=== PATIENT | female | born 1940 | race Caucasian/White ===

== ENCOUNTER 2025-02-15 11:14 | Outpatient (REF) | payer MEDICARE, SELFPAY ==
[2025-02-15 13:13] LABS: MANUAL DIFF FLAG NO
[2025-02-15 13:32] LABS: Hematocrit 44.3 % (37.0-47.0); Hemoglobin 14.1 g/dl (12.0-16.0); Imm Gran Abs Auto 0.01 X10*3/uL (0.00-0.03); Imm Gran Pct Auto 0.1 % (0.0-0.4); Lymphocytes Absolute Auto 1.8 X10*3/uL (1.2-4.9); Mean Corpuscular HGB Conc 31.8 g/dl (31.0-35.0); Mean Corpuscular Hemoglobin 30.6 pg (27.0-33.0); Mean Corpuscular Volume 96.1 fL (80.0-98.0); NRBC Abs Auto 0.000 X10*3/uL (0.0-0.012); NRBC Pct Auto 0.0 /100WBC (0.0-0.2); Platelet Count 345 X10*3/uL (160-400); Red Blood Count 4.61 X10*6/uL (4.20-5.50); White Blood Count 7.1 X10*3/uL (4.8-10.8)
[2025-02-15 13:58] LABS: Alanine Aminotransferase 13 U/L (0-31); Albumin Level 4.1 g/dL (3.5-5.0); Alkaline Phosphatase 95 U/L (39-117); Anion Gap 10 (12-20); Aspartate Amino Transferase 26 U/L (5-31); Blood Urea Nitrogen 19 mg/dL (9-16); Calcium 9.1 mg/dL (8.4-10.2); Carbon Dioxide 30 mmol/L (22-29); Chloride 103 mmol/L (96-108); Cholesterol 206 mg/dL (<200); Estimated Glomerular Filt Rate > 60; HDL Cholesterol 51 mg/dL (>40); Potassium 3.8 mmol/L (3.3-5.1); Sodium 139 mmol/L (135-145); Total Protein 7.9 g/dL (6.5-8.0); Triglycerides 107 mg/dL (<150)
--- OUTSIDE RECORDS SUMMARY | 2025-02-15 14:24 | XMS_ITS | Clinical Summary ---
Author Organization [facility], [facility], and [facility] Address [address] [place] [address] Care Team Providers Care Jewel Bearing Polisher Name Role Phone Caprice Coleman MD Primary Care Provider [phone] Jose Maria Anguiano MD Unavailable Unavailable Yarelis Zarate, [facility] Unavailable Shabana Coulter MD Unavailable Unavailable Diego Santa MD Unavailable [phone] Allergies Active Allergy Reactions Criticality Noted Date Comments 5ht3 Receptor Antagonists 07/24/2020 Codeine 04/25/2019 Medications polyvinyl alcohol 1.4 % Solution ophthalmic solutionIndicati ons:Burning Sensation of Eyes Administer 1 drop to both eyes 4 Times a Day As Needed. Indications: Burning in Eyes 1 Bottle 10 07/03/19 21 Active brimonidine 0.2 % SolutionIndicati ons:Increased Intraocular Pressure,Ocular Hypertension,Ope n-Angle Glaucoma Administer 1 drop to both eyes 2 Times a Day. Indications: Increased Pressure Within the Eye, Persistently Increased Pressure in the Eye, Wide-Angle Glaucoma 1 Bottle 5 07/03/19 21 Active ciclopirox (CICLODAN) 8 % SolutionIndicati ons:Fungal Infection Apply topically Nightly. 6.6 mL 3 06/16/19 23 Active Multiple Vitamin (MULTIVITAMIN ADULT) TabletIndication s:Vitamin and/or Mineral Deficiency Take 1 tablet by mouth Daily. 90 tablet 2 11/10/19 24 Active Diclofenac Sodium 1 % GelIndications:I nflammation Apply topically 2 Times a Day As Needed. 150 g 3 11/10/19 24 Active bisacodyl 10 MG suppositoryIndic ations:Constipat ion Insert 1 suppository (10 mg) into the rectum Daily. 12 suppository 12/02/19 24 Active polyethylene glycol 17 gram 17 g PacketIndication s:Constipation 1 Packet Daily As Needed Use as directed. 30 Each 1 12/02/19 24 Active psyllium 58.6 % PacketIndication s:Constipation Take 1 Packet by mouth Daily. 30 Each 5 12/22/19 24 Active losartan 25 MG TabletIndication s:Hypertension Take 1 tablet (25 mg) by mouth Daily DOSE CHANGE. 90 tablet 3 03/09/20 24 025 Active latanoprost ophthalmic solution (XALATAN) 0.005 % Solution ophthalmic solutionIndicati ons:Increased Intraocular Pressure Apply 1 drop to eye Nightly. 7.5 mL 10 03/09/20 24 Active dorzolamide 2 % Solution ophthalmic solutionIndicati ons:Glaucoma Administer 1 drop to both eyes 2 Times a Day. 10 mL 10 03/09/20 24 Active timolol ophthalmic solution 0.5 % Solution ophthalmic solutionIndicati ons:Increased Intraocular Pressure Administer 1 drop to both eyes 2 Times a Day. 10 mL 10 03/09/20 24 Active aspirin 81 MG Tablet DRIndications:Ca rdiovascular Risk Reduction Take 1 tablet (81 mg) by mouth Daily. 90 tablet 3 05/27/19 25 026 Active pravastatin 40 MG TabletIndication s:Hyperlipidemia Take 1 tablet (40 mg) by mouth Nightly. 90 tablet 3 05/27/19 25 026 Active levothyroxine 88 MCG TabletIndication s:Hypothyroidism Take 1 tablet (88 mcg) by mouth Daily DOSE CHANGE - please increase from 75mcg daily to 88mcg daily. 90 tablet 3 06/22/19 25 Active citalopram 40 MG TabletIndication s:Depression Take 1 tablet (40 mg) by mouth Daily. 90 tablet 3 06/22/19 25 Active meclizine 25 MG TabletIndication s:Vertigo Take 1 tablet (25 mg) by mouth Daily As Needed for vertigo. 30 tablet 1 06/22/19 25 Active metoprolol succinate 25 MG Tablet ER 24 HourIndications: Hypertension Take 1 tablet (25 mg) by mouth Daily. 90 tablet 3 06/22/19 25 Active Omeprazole 40 MG Capsule DRIndications:Ga stric Hyperacidity Take 1 capsule (40 mg) by mouth Daily 30 mins Before Breakfast. 90 capsule 3 08/13/19 25 026 Active simethicone 80 MG Tablet ChewableIndicati ons:Flatulence Take 1 tablet (80 mg) by mouth Every 6 Hours As Needed for flatulence. 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 Hypothyroidism 04/25/2019 Other depressive disorder 04/25/2019 Otitis externa 04/25/2019 Reflux esophagitis 04/25/2019 Routine history and physical examination of adul t 04/25/2019 Constipation 09/10/2018 Autoimmune hepatitis 02/15/2018 Vertigo 05/19/2016 Sensorineural hearing loss, bilateral 05/19/2016 Dizziness 02/15/2016 Subjective tinnitus 02/15/2016 Nonulcer dyspepsia 05/10/2009 Absolute anemia 05/10/2009 Migraine 05/10/2009 Other and unspecified hyperlipidemia 05/10/2009 Immunizations Immunization Administration Dates Next Due Influenza Vaccine, Quadrivalent, Adjuvanted 01/18,03/19/2022,12/22/2020 Influenza high dose seasonal , preservative free, trivalent 01/24/2019,02/16/2017,03/21/2016 Influenza quadrivalent injec table, preservative free 12/29/2019 Influenza seasonal adjuvante d, preservative free, trivalent 02/04/2024,02/11/2018 Influenza seasonal injectable, trivalent 014,03/25/2013 Pfizer Age 12Y+ (Purple Top) SARS-CoV-2 Vaccination 02/21/2021,06/01/2020,05/11/2020 Pfizer Age 12Y+ Helio-Sucrose 30 mcg/0.3 mL SARS-CoV-2 Vaccination 09/19/2021 Pneumococcal polysaccharide, 23 valent (Pneumovax) 09/12/2020 RSV VACCINE (ABRYSVO), 60 Y+ /Preg 32-36W, BIVALENT, 0.5 ML, IM 05/26/2023 TDAP, adsorbed 05/29/2021 Zoster recombinant (Shingrix) 02/17/2022, 022 Social History Tobacco Use Types Packs/Day Years Used Date Smoking Tobacco: Never Smokeless Tobacco: Never Tobacco Cessation:Counseling Given: Not Answered Alcohol Use Standard Drinks/Week Comments Never 0 (1 standard drink = 0.6 oz pur e alcohol) Hunger Vital Sign Answer Date Recorded Within the past 12 months, y ou worried that your food would run out before you got the money to buy more. Never true 06/13/19 23 Within the past 12 months, t he food you bought just didn't last and you didn't have money to get more. Never true 06/13/2022 PRAPARE - Transportation Answer Date Re corded In the past 12 months, has l ack of transportation kept you from medical appointments or from getting medications? No 05/22 In the past 12 months, has l ack of transportation kept you from meetings, work, or from getting things needed for daily living? No 06/13/2022 Housing Stability Vital Sign Answer Joseph e Recorded In the last 12 months, was t here a time when you were not able to pay the mortgage or rent on time? No 06/13/2022 In the last 12 months, how many places have you lived? 1 06/13/2022 In the last 12 months, was t here a time when you did not have a steady place to sleep or slept in a long term (including now)? No 06/13/2022 Comments No Sex and Gender Information Value Date Recorded Sex Assigned at Female 03/19/2022 12:23 PM EST Legal Sex Female 1:13 PM EST Gender Identity Female 03/19/2022 12:23 PM EST Sexual Orientation Straight 03/19/2022 12 :23 PM EST Last Filed Vital Signs Vital Sign Reading Time Taken Comments Blood Pressure 134/76 08/23/2024 2:39 PM EDT Pulse 68 08/23/2024 2:39 PM EDT Temperature 36.5 C (97.7 F) 08/23/2024 2:39 PM EDT Respiratory Rate 17 08/23/2024 2:39 PM EDT Oxygen Saturation 95% 08/23/2024 2:39 PM EDT Inhaled Oxygen Concentration - - Weight 67.2 kg (148 lb 3.2 oz) 08/23/2024 2:39 P M EDT Height 157.5 cm (5' 2 ) 08/23/2024 2:39 PM EDT Body Mass Index 27.11 08/23/2024 2:39 PM EDT Plan of Treatment Upcoming Encounters Date Type Department Care Team (Late st Contact Info) Description 04/03/2025 1:00 PM EST Office Visit [facility] [address], [address] [place] [phone] Romina Byers MD [address] [address] Health Maintenance Due Date Last Done Comments Cologuard 2017 FOBT/FIT 2017 Flex-Sigmoidoscopy or CT Colonography 2017 Pneumococcal Vaccine: 50+ Years (2 of 2 - PCV) 09/12/2021 09/12/2020 Screening Mammography for Breast Cancer 07/01/2022 07/01/2021, 07/01/2021, 07/01/2021, Additional history exists BONE DENSITY SCREENING 02/14/2024 , 02/13/2022, 02/13/2022 COVID-19 Vaccine ( season) 2024 09/19/2021, 02/21/2021, 06/01/2020, Additional history exists IMM: Influenza (#1) 2024 02/04/2024, 01/27/2023, 03/19/2022, Additional history exists LIPID SCREENING 07/12/2029 07/12/2024, 02/0 09/2023, 12/18/2021, Additional history exists Colonoscopy 07/24/2030 07/24/2020 Colorectal Cancer Screening 07/24/2030 IMM: DTap/ Tdap/ Td (2 - Td or Tdap) 05/29/2031 05/29/2021 IMM: Zoster Vaccine (Shingles) Completed 02/17/2022, 11/08/2021, 11/13/2020 IMM: RSV Completed 05/26/2023 IMM: Meningococcal B Aged Out No long er eligible based on patient's age to complete this topic Pap Smear Discontinued Procedures Procedure Name Priority Date/Time Associated Diagnosis Comments LIPID PROFILE Routine 07/12/2024 2:26 PM EDT Cerebrovascular accident (CVA), unspecified mechanism BONE DENSITOMETRY SCAN ONLY Routine 02/13/2022 MAMMOGRAM SCREENING DIGITAL WITH TOMOSYNTHESIS - BILATERAL Routine 07/01/2021 2:20 PM EDT Encounter for screening mammogram for malignant neoplasm of breast COLONOSCOPY 07/24/2020 7:40 AM EDT from Last 3 Months or Most Recently Relevant to Health Maintenance Results * (ABNORMAL) LIPID PROFILE (07/12/2024 2:26 PM EDT) Cholesterol Total 212(H) <=199 mg/dL 07/12/2024 6:12 PM EDT [facility] Comment:The significance of total cholesterol depends on the value of individual components including HDL, LDL, non-HDL, and triglycerides. Triglyceride 109 <=149 mg/dL 07/12/2024 6:12 PM EDT [facility] Comment: < 150 mg/dL Normal fasting < 175 mg/dL Normal non-fasting >= 500 mg/dL Severely elevated HDL Cholesterol 58 >=50 mg/dL 07/12/2024 6:12 PM EDT [facility] Comment: < 40 mg/dL Low >= 60 mg/dL Desirable LDL Cholesterol 132 mg/dL 6:13 PM EDT [facility] Comment: <= 99 mg/dL (Primary prevention) <= 69 mg/dL (Secondary prevention) < 70 mg/dL, Desired threshold for known coronary disease, stroke, and peripheral artery disease. 70-159 mg/dL, Cardiovascular risk assessment is recommended. Recommend lipid lowering therapy with history of diabetes. 160-189 mg/dL, Moderately elevated. Recommend lipid lowering therapy if cardiovascular risk factor present. >= 190 mg/dL, Severely elevated; consider possibility of familial hypercholesterolemia. Lipid lowering therapy strongly encouraged Non-HDL Cholesterol 154 mg/dL 07/12 6:13 PM EDT [facility] Comment: Reference ranges: <= 129 mg/dL (Primary prevention) <= 99 mg/dL (Secondary prevention) Chol HDL Ratio 3.7 0.0 - 4.9 07/12/2024 6:13 PM EDT [facility] Blood 07/12/2024 2:26 PM EDT 07/12/2024 4:40 PM EDT Narrative Resulting Agency Comment LIPID Caprice Coleman MD LAB-CHEMISTRY Final Result [facility] [address] [address] [facility] [address] [address] * BONE DENSITOMETRY SCAN ONLY (02/13/2022) Anatomical Region Laterality Modality Entire Body N/A Digital Radiogra phy us Historical Scan IMG DXA PROCEDURES Final Result * Mammogram Screening Digital with Tomosynthesis - Bilateral (07/01/2021 2:20 PM EDT) Anatomical Region Laterality Modality Breast Bilateral Mammography 05/07/2021 Impressions 07/06/2021 1:44 PM EDT There is no mammographic evidence of malignancy. RECOMMENDATION: Screening Mammogram in 1 Year Side: Both BI-RADS mammogram: 2: Benign Electronically Signed By: Princess Tabor on July 06, 2021 01:40 PM Narrative 07/06/2021 1:44 PM EDT EXAMINATION: BILATERAL SCREENING DIGITAL MAMMOGRAM WITH TOMOSYNTHESIS AND COMPUTER-AIDED DETECTION CLINICAL INFORMATION: Screening mammogram. TECHNIQUE: CC and MLO views were obtained using full-field digital technique. A right AT view was obtained. Tomosynthesis and 2D synthetic MLO and CC views were obtained. This examination was evaluated with computer-aided detection following primary review. COMPARISON: Comparison study date(s): 06/29/2020, 02/11/2019, 02/10/2018, 01/22/2017, 01/21/2016. Date of last clinical breast exam: 1 month ago FINDINGS: Density: There are scattered areas of fibroglandular density. There is no suspicious mass, architectural distortion or microcalcification. A biopsy marker is again noted in the right central breast. Bilateral benign-appearing calcifications are again noted. There has been no significant change. Procedure Note Princess Tabor MD - 07/06/2021 EXAMINATION: BILATERAL SCREENING DIGITAL MAMMOGRAM WITH TOMOSYNTHESIS ANDCOMPUTER-AIDED DETECTION CLINICAL INFORMATION: Screening mammogram. TECHNIQUE: CC and MLO views were obtained using full-field digital technique. A rightAT view was obtained. Tomosynthesis and 2D synthetic MLO and CC views wereobtained. This examination was evaluated with computer-aided detectionfollowing primary review. COMPARISON: Comparison study date(s): 06/29/2020, 02/11/2019, 02/10/2018, 01/22/2017,01/21/2016. Date of last clinical breast exam: 1 month ago FINDINGS: Density: There are scattered areas of fibroglandular density. There is no suspicious mass, architectural distortion ormicrocalcification. A biopsy marker is again noted in the right centralbreast. Bilateral benign-appearing calcifications are again noted. Therehas been no significant change. IMPRESSION: There is no mammographic evidence of malignancy. RECOMMENDATION: Screening Mammogram in 1 Year Side: Both BI-RADS mammogram: 2: Benign Electronically Signed By: Princess Tabor on July 06, 2021 01:40 PM Caprice Coleman MD IMG BI PROCEDURES Final Resul t * COLONOSCOPY (07/24/2020 7:40 AM EDT) 07/24/2020 7:40 AM EDT Narrative Procedure Note Branden Glass MD - 07/24/2020 7:40 AM EDT [facility] Endo Gastrointestinal Endoscopy and Bronchoscopy Suites Patient Name: Andreina Helton Procedure Date: 07/24/2020 7:40 AM Date of : 1940 Admit Type: Outpatient Age: 80 Room: [facility] 13 ENDO ROOM 07 Gender: Female Note Status: Finalized Attending MD: BRANDEN GLASS MD Instrument Name: [id number] Procedure: Colonoscopy Indications: Colon cancer screening in patient [id number] relative having advanced adenoma of the colon Providers: BRANDEN GLASS MD, Sarah Cooper MD, Ashleigh Medellin RN, Jabari Mejía, Hat Forming Machine Feeder Referring MD: Amado Amaya MD Medicines: Monitored Anesthesia Care Complication: No immediate complications. Procedure: Pre-Anesthesia Assessment: - Prior to the procedure, a History and Physical was performed, and patient medications and allergies were reviewed. The patient iscompetent. The risks and benefits of the procedure and the sedation options and risks were discussed withthe patient. All questions were answered andinformed consent was obtained. Patient identification and proposed procedure were verified by thephysician, the nurse and the anesthesiologist in the pre-procedure area in the procedure room in the endoscopy suite. Mental Status Examination:alert and oriented. Airway Examination: normal oropharyngeal airway and neck mobility.Respiratory Examination: clear to auscultation. CVExamination: normal. Prophylactic Antibiotics: The patientdoes not require prophylactic antibiotics. Prior Anticoagulants: The patient has taken noprevious anticoagulant or antiplatelet agents. ASA Grade Assessment: II - A patient with mild systemic disease. After reviewing the risks and benefits, the patient was deemed in satisfactory conditionto undergo the procedure. The anesthesia plan wasto use monitored anesthesia care (MAC). Immediately prior to administration of medications, thepatient was re-assessed for adequacy to receivesedatives. The heart rate, respiratory rate, oxygen saturations, blood pressure, adequacy ofpulmonary ventilation, and response to care were monitored throughout the procedure. The physical status of the patient was re-assessed after theprocedure. --------After I obtained informed consent, the scope was passed under direct vision. Throughout the procedure, the patient's blood pressure,pulse, and oxygen saturations were monitoredcontinuously. The [id number] was introduced through the anus and advanced to the terminal ileum, with identification of the appendiceal orifice and IC valve. The colonoscopy was performed without difficulty. The patient tolerated the procedure well. The quality of the bowel preparation wasgood. Findings: The terminal ileum appeared normal. Biopsies were taken with a cold forceps for histology. Scattered small-mouthed diverticula were found in the sigmoid colonand descending colon. The exam was otherwise without abnormality on direct and retroflexion views. Impression: - The examined portion of the ileum was normal. Biopsied. - Diverticulosis in the sigmoid colon and in the descending colon. - The examination was otherwise normal on direct and retroflexion views. Recommendation: - Patient has a contact number available for emergencies. The signs and symptoms of potential delayed complications were discussed with the patient. Return to normal activities tomorrow. Written discharge instructions were provided tothe patient. - Resume previous diet. - Continue present medications. - Await pathology results. - No repeat colonoscopy for screeningpurposes. Procedure Code(s): --- Professional --- 62304, Colonoscopy, flexible; with biopsy,single or multiple Diagnosis Code(s): --- Professional --- Z83.71, Family history of colonic polyps K57.30, Diverticulosis of large intestinewithout perforation or abscess without bleeding CPT copyright 2019 [employer]. All rights reserved. The codes documented in this report are preliminary and upon ward attendant reviewmay be revised to meet current compliance requirements. Attending Participation: I was present and participated during the entire procedure, including non-light portions. BRANDEN GLASS MD 07/24/2020 8:53:31 AM This report has been signed electronically. Sarah Cooper MD 07/24/2020 8:32:55 AM Number of Addenda: 0 Note Initiated On: 07/24/2020 7:40 AM Estimated Blood Loss: Estimated blood loss: none. Branden Glass MD GI PROCEDURE ORD ERABLES Final Result from Last 3 Months or Most Recently Relevant to Health Maintenance Insurance [employer]ARE , [address] [place] [id number] Care Teams Jewel Bearing Polisher Relationship Specialty Start Date End Date Caprice Coleman MD [address] [address] PCP - General Medicine 06/26/20 Diego Santa MD [facility] [address] [place] [address] PCP - PCP Assigned by Plan 09/14/24 Jose Maria Anguiano MD [address] [place] [address] Ophthalmology 09/05/22 Yarelis Zarate Au.D, CCC-A [address] Audiology Dept: [place] [address] Solar Sales Specialist Ent-Otolaryngology 03/11/24 Shabana Coulter MD [address] [place] [address] Audiology Dept: [place] [address] Ophthalmology 07/01/24
--- OUTSIDE RECORDS SUMMARY | 2025-02-15 14:24 | XMS_ITS | Clinical Summary ---
Author Organization [employer] Address [address] [facility] [address] [place] [address] Care Team Providers Care Alteration Manager Name Role Phone Igor Guido MD Primary Care Provide r Allergies No known active allergies Medications dorzolamide (Trusopt) 2 % ophthalmic solution Administer 1 drop into both eyes in the morning and 1 drop in the evening. Active timolol (Timoptic) 0.5 % ophthalmic solution Administer 1 drop into both eyes 2 times daily. Active latanoprost (Xalatan) 0.005 % ophthalmic solution 1 drop at bedtime. Active meclizine (Antivert) 25 MG tablet Take 25 mg by mouth if needed in the morning, at noon, and at bedtime for dizziness. Active aspirin 81 MG EC tablet Take 81 mg by mouth Once per day. Active levothyroxine (Tirosint) 88 MCG capsuleIndication s:Hypothyroidism, unspecified type Take 1 capsule (88 mcg) by mouth before breakfast. 30 capsule 3 5 Active citalopram (CeleXA) 40 MG tabletIndications :Mixed anxiety and depressive disorder Take 1 tablet (40 mg) by mouth Once per day. 30 tablet 3 5 Active metoprolol succinate XL (Toprol-XL) 25 MG 24 hr tabletIndications :Primary hypertension Take 1 tablet (25 mg) by mouth Once per day. Do not crush or chew. 30 tablet 6 5 Active omeprazole OTC (PriLOSEC OTC) 20 MG EC tabletIndications :Gastroesophageal reflux disease, unspecified whether esophagitis present Take 1 tablet (20 mg) by mouth before breakfast. Do not crush, chew, or split. 39 tablet 3 5 Active levothyroxine (Synthroid, Levoxyl) 88 MCG tablet Take 1 tablet (88 mcg) by mouth before breakfast. 30 tablet 3 5 12/31/19 26 Active Active Problems Problem Noted Date Diagnosed Date Preventative health care 11/24/2024 Assessment & Plan (11/24/2024 10:00 AM EDT): Colonoscopy: Pt tells me she had one in [facility] Vaccine: Pt tells me she has all her vaccine as well Hypertension Assessment & Plan (11/24/2024 9:52 AM EDT): BP controlled Omn Metoprolol 25 mg po daily Plan: Continue current regimen Obtain BMP Vertigo Assessment & Plan (11/24/2024 9:52 AM EDT): Uses meclizine PRN Hypothyroidism Assessment & Plan (11/24/2024 9:53 AM EDT): On Levothyroxine 88 mcg po daily Mixed anxiety and depressive disorder Assessment & Plan (11/24/2024 9:56 AM EDT): Patient tells me she had a hx of psychiatric hospitalization and since then she has been on Citalopram with good results Glaucoma Assessment & Plan (11/24/2024 9:56 AM EDT): [facility] 12/26/2024 Encounters Date Type Department Care Team Description 01/02/2025 Telephone [facility] [address] [place] [address] Igor Guido MD February12/30/2024 Refill [facility] [address] [place] [address] Igor Guido MD 11/24/2024 9:30 AM EDT Office Visit [facility] [address] [place] [address] Igor Guido MD Primary hypertension (Primary Dx); Vertigo; Hypothyroidism, unspecified type; Mixed anxiety and depressive disorder; Glaucoma of both eyes, unspecified glaucoma type; Gastroesophageal reflux disease, unspecified whether esophagitis present; Preventative health care 11/24/2024 Travel 11/23/2024 Telephone [facility] [address] [place] [address] Igor Guido MD Chart Prep 11/16/2024 Patient Outreach [facility] [address] [place] [address] Igor Guido MD Pre-visit Planning (SDOH Screening negative and Tobacco screening negative) from Last 3 Months Social History Tobacco Use Types Packs/Day Years Used Date Smoking Tobacco: Never Smokeless Tobacco: Never Tobacco Cessation:Counseling Given: Not Answered Alcohol Use Standard Drinks/Week Comments Never 0 (1 standard drink = 0.6 oz pur e alcohol) Housing Stability Answer Date Recorded What is your housing situation today? I have lawrencemariana dodd 11/16/[address] you li ve. Do you have problems with any of the following? None of the above 11/16/2024 Food Insecurity Answer Date Recorded Within the past 12 months, y ou worried that your food would run out before you got money to buy more: Never True 11/16/2024 Within the past 12 months,th e food you bought just didn't last and you didn't have enough money to get more: Never True Transportation Answer Date Recorded In the past 12 months, has l ack of transportation kept you from medical appts, meetings, work or from getting things needed for daily living? No 11/16/2024 Utilities Answer Date Recorded In the past 12 months, has t he electric, gas, oil or water [employer] threatened to shut off services in your home? No 11/16/2024 Internet Access Answer Date Recorded Internet Access Q1 Yes 11/16/2024 Internet Access Q2 Not on file 11/16/2024 Comments Unknown Sex and Gender Information Value Date Recorded Sex Assigned at Female 11/23/2024 9:40 AM EDT Legal Sex Female 1:59 PM EDT Gender Identity Female 11/23/2024 9:40 AM EDT Sexual Orientation Choose not to disclose 2024 9:40 AM EDT Last Filed Vital Signs Vital Sign Reading Time Taken Comments Blood Pressure 138/84 11/24/2024 10:02 AM EDT Pulse 60 11/24/2024 9:31 AM EDT Temperature 36.2 C (97.1 F) 11/24/2024 9:31 AM EDT Respiratory Rate 12 11/24/2024 9:31 AM EDT Oxygen Saturation 97% 11/24/2024 9:31 AM EDT Inhaled Oxygen Concentration - - Weight 68.1 kg (150 lb 3.2 oz) 11/24/2024 9:31 A M EDT Height 158.8 cm (5' 2.5 ) 11/24/2024 9:31 AM EDT Body Mass Index 27.03 11/24/2024 9:31 AM EDT Plan of Treatment Upcoming Encounters Date Type Department Care Team (Late st Contact Info) Description 03/07/2025 10:30 AM EST Office Visit [facility] [address] [place] [address] Igor Guido MD [address], [place] [phone] Health Maintenance Due Date Last Done Comments Depression Screening 1940 Lipid Panel 1940 02/15/2025 DTaP/Tdap/Td Vaccines (1 - Tdap) 01/10/1960 Pneumococcal Vaccine: 50+ Ye ars (1 of 1 - PCV) 1991 Zoster Vaccines (1 of 2) 1991 RSV Patients and Pa tients Aged 60 years or older (1 - 1-dose 75+ series) 01/10/2016 COVID-19 Vaccine (1 - 2023-2 5 season) 2024 Influenza Vaccine (#1) 2024 SDOH Screening 11/16/2025 11/16/2024 Alcohol/Substance Use Screening 11/24/2025 Tobacco Screening 11/24/2025 11/24/2024 HIB Vaccines Aged Out No longer eligi ble based on patient's age to complete this topic HPV Vaccines Aged Out No longer eligi ble based on patient's age to complete this topic Hepatitis A Vaccines Aged Out No long er eligible based on patient's age to complete this topic Hepatitis B Vaccines Aged Out No long er eligible based on patient's age to complete this topic IPV Vaccines Aged Out No longer eligi ble based on patient's age to complete this topic Meningococcal B Vaccine Aged Out No l onger eligible based on patient's age to complete this topic Meningococcal Vaccine Aged Out No kendell katerina eligible based on patient's age to complete this topic RSV under 20 months Aged Out No longe r eligible based on patient's age to complete this topic Rotavirus Vaccines Aged Out No longer eligible based on patient's age to complete this topic Procedures Procedure Name Priority Date/Time Associated Diagnosis Comments CBC WITH AUTO DIFFERENTIAL Routine 02/15/2025 11:30 AM EDT Primary hypertension Hypothyroidism, unspecified type COMPREHENSIVE METABOLIC PANEL Routine 02/15/2025 11:30 AM EDT Primary hypertension TSH W/REFLEX TO FT4 Routine 02/15/2025 1 1:30 AM EDT Hypothyroidism, unspecified type Mixed anxiety and depressive disorder LIPID PANEL, STANDARD Routine 02/15/2025 11:30 AM EDT Primary hypertension from Last 3 Months Results * TSH with Reflex to Free T4 (02/15/2025 11:30 AM EDT) TSH reflex Free T4 1.67 0.32 - 4.0 uIU/mL [facility] Blood Venous blood specimen / Unknown 02/15/2025 11:30 AM EDT 02/15/2025 1:09 PM EDT us Igor Garrido MD LAB BLOOD ORDERABLES Final Result [facility] [address] [place] [phone] * (ABNORMAL) CBC auto differential (02/15/2025 11:30 AM EDT) White Blood Count 7.1 4.8 - 10.8 X10*3/uL [facility] Red Blood Count 4.61 4.20 - 5.50 X10*6/uL [facility] Hemoglobin 14.1 12.0 - 16.0 g/dl [facility] Hematocrit 44.3 37.0 - 47.0 % [facility] Mean Corpuscular Volume 96.1 80.0 - 98.0 fL [facility] Mean Corpuscular Hemoglobin 30.6 27.0 - 33.0 pg [facility] Mean Corpuscular HGB Conc 31.8 31.0 - 35.0 g/dl [facility] Red Cell Distribution Width 12.9 11.0 - 16.0 % [facility] Platelet Count 345 160 - 400 X10*3/uL [facility] Mean Platelet Volume 11.1 9.4 - 12.3 fL [facility] Neutrophils Percent Auto 59.7 45 - 73 % [facility] Imm Gran Pct Auto 0.1 0.0 - 0.4 % [facility] Lymphocytes Percent Auto 24.6 20 - 40 % [facility] Monocytes Percent Auto 9.0 2 - 11 % [facility] Eosinophils Percent Auto 5.9(H) 0 - 4 % [facility] Basophils Percent Auto 0.7 0 - 2 % [facility] NRBC Pct Auto 0.0 0.0 - 0.2 /100WBC [facility] Neutrophils Absolute Auto 4.3 2.0 - 8.3 x10*3/uL [facility] Imm Gran Abs Auto 0.01 0.00 - 0.03 X10*3/uL [facility] Lymphocytes Absolute Auto 1.8 1.2 - 4.9 X10*3/uL [facility] Monocytes Absolute Auto 0.6 0.1 - 1.2 X10*3/uL [facility] Eosinophils Absolute Auto 0.4 0.0 - 0.4 X10*3/uL [facility] Basophils Absolute Auto 0.1 0.0 - 0.2 X10*3/uL [facility] NRBC Abs Auto 0.000 0.0 - 0.012 X10*3/uL [facility] Blood Venous blood specimen / Unknown 02/15/2025 11:30 AM EDT 02/15/2025 1:09 PM EDT Igor Garrido MD LAB BLOOD ORDERABLES Final Result Performing Organization Address [facility]/ZIP Co de Phone Number [facility] [address] [place] [address] [phone] * (ABNORMAL) Lipid Panel, Standard (02/15/2025 11:30 AM EDT) Triglycerides 107 <150 mg/dL [facility] Comment:Desirable Triglyceri de: less than 150 mg/dLBorderline High Triglyceride 150-199 mg/dLHigh Triglyceride: 200-499 mg/dLVery High Triglyceride: greater than or equal to 5OO mg/dL Cholesterol 206(H) <200 mg/dL [facility] Comment:Desirable Cholestero l: less than 200 mg/dLBorderline High Cholesterol: 200-239 mg/dLHigh Cholesterol: greater than 239 mg/dL LDL Cholesterol Calculated 134(H) <100 mg/dL [facility] Comment:Desirable LDL: less than 100 mg/dLNear Optimal/Above Optimal LDL: 110- 129 mg/dLBorderline High LDL: 130-159 mg/dLHigh LDL: 160-189 mg/dLVery High LDL: greater than or equal to 190 mg/dL HDL Cholesterol 51 >40 mg/dL [facility] Comment:Desirable HDL: great er than 40 mg/dL Note: This HDL assay may give artificially low results in patients with liver disease. Blood Venous blood specimen / Unknown 02/15/2025 11:30 AM EDT 02/15/2025 1:09 PM EDT Igor Garrido MD LAB BLOOD ORDERABLES Final Result Performing Organization Address City/[facility]/ZIP Co de Phone Number [facility] [address] [place] [address] [phone] * (ABNORMAL) Comprehensive Metabolic Panel (02/15/2025 11:30 AM EDT) Sodium 139 135 - 145 mmol/L [facility] Potassium 3.8 3.3 - 5.1 mmol/L [facility] Chloride 103 96 - 108 mmol/L [facility] Carbon Dioxide 30(H) 22 - 29 mmol/L [facility] Anion Gap 10(L) 12 - 20 [facility] Urea Nitrogen (BUN) 19(H) 9 - 16 mg/dL [facility] Creatinine, Serum 0.79 0.5 - 1.4 mg/dL [facility] Estimated Glomerular Filt Rate >60 [facility] Comment:Chronic Kidney Disea se: Estimated GFR < 60 mL/min/[id number] Kidney Disease: Estimated GFR < 15 mL/min/1.73m2 Glucose 108 60 - 115 mg/dL [facility] Calcium 9.1 8.4 - 10.2 mg/dL [facility] Bilirubin, Total 0.6 0.0 - 1.0 mg/dL [facility] Aspartate Amino Transferase 26 5 - 31 U/L [facility] Alanine Aminotransferase 13 0 - 31 U/L [facility] Total Protein 7.9 6.5 - 8.0 g/dL [facility] Albumin Level 4.1 3.5 - 5.0 g/dL [facility] Alkaline Phosphatase 95 39 - 117 U/L [facility] Blood Venous blood specimen / Unknown 02/15/2025 11:30 AM EDT 02/15/2025 1:09 PM EDT us Igor Garrido MD LAB BLOOD ORDERABLES Final Result [facility] [address] [place] [address] [phone] from Last 3 Months Insurance [employer] PPO Care Teams Alteration Manager Relationship Specialty Start Date End Date Igor Guido MD [address] [place] [phone] PCP - General Internal Medicine 11/24/24
--- OUTSIDE RECORDS SUMMARY | 2025-02-15 14:24 | XMS_ITS | Clinical Summary ---
Author Organization [facility] Address [address] [place] [phone] Phone Care Team Providers Care Mowing Machine Operator Name Role Phone Physician, No Pcp Primary Care Provider Unavaila ble Allergies No known active allergies Medications No known medications Active Problems No known active problems Medical History Medical History Date Comments Hypertension Disease of thyroid gland Depression Social History Tobacco Use Types Packs/Day Years Used Date Smoking Tobacco: Never Smokeless Tobacco: Never Tobacco Cessation:Counseling Given: Not Answered Comments Unknown Sex and Gender Information Value Date Recorded Sex Assigned at Female 03/14/2024 4:34 PM EST Legal Sex Female 12:36 PM EST Gender Identity Female 03/14/2024 4:34 PM EST Sexual Orientation Straight 03/14/2024 4: 34 PM EST Obstetrics History Last Filed Vital Signs Vital Sign Reading Time Taken Comments Blood Pressure 172/65 03/14/2024 7:38 PM EST Pulse 64 03/14/2024 7:38 PM EST Temperature 36.5 C (97.7 F) 03/14/2024 7:38 PM EST Respiratory Rate 17 03/14/2024 7:38 PM EST Oxygen Saturation 98% 03/14/2024 7:38 PM EST Inhaled Oxygen Concentration - - Weight 66.7 kg (147 lb) 03/14/2024 1:05 PM EST Height 165.1 cm (5' 5 ) 03/14/2024 1:05 PM EST Body Mass Index 24.46 03/14/2024 1:05 PM EST Plan of Treatment Health Maintenance Due Date Last Done Comments DTaP,Tdap,and Td Vaccines (1 - Tdap) 01/10/1959 Pneumococcal Vaccine: 50+ Ye ars (1 of 1 - PCV) 1991 Zoster Vaccines (1 of 2) 1991 RSV Immunization Adult Patie nts (1 - 1-dose 75+ series) 01/10/2016 Falls Risk Assessment 03/14/2024 Medicare Annual Wellness Visit 03/14/2024 Osteoporosis Screening (Bone Density Screening) 03/14/2024 Social Influencers of Health Screening 03/14/2024 Depression Screening 04/20/2024 COVID-19 Vaccine (2023-2 5 season) 2024 Influenza Vaccine (#1) 2024 HIB Vaccines Aged Out No longer eligi [...] on patient's age to complete this topic MMR Vaccines Aged Out No longer eligi ble based on patient's age to complete this topic Meningococcal ACWY Vaccine Aged Out N o longer eligible based on patient's age to complete this topic Meningococcal B Vaccine Aged Out No l onger eligible based on patient's age to complete this topic RSV Immunization Patients Un mendez 20 months Aged Out No longer eligible b ased on patient's age to complete this topic Varicella Vaccines Aged Out No longer eligible based on patient's age to complete this topic [place] [place] [address] MEDICARE ADVANTAGE on file Care Teams Mowing Machine Operator Relationship Specialty Start Date End Date Physician, No Pcp PCP - General 03/14/24
== END 2025-02-15 11:15 | disposition home or self-care (01) ==
LOC: HO.HHCL 11:14
PROVIDERS: PCP Internal Medicine; Visit Provider Internal Medicine
DX: I10 Essential (primary) hypertension (principal); E03.9 Hypothyroidism, unspecified; F41.8 Other specified anxiety disorders
CPT/HCPCS: 36415; 80053; 80061; 84443; 85025